=== PATIENT | female | born 1965 ===

== ENCOUNTER → 2018-07-17 | Outpatient (CLI) | payer SELFPAY ==
[~2018-07-17] MED LIST: ACYC800T PO; ALAVERT PO; DOXY100C2; HYDR-700 PO; METH4TAB; PHEN35TA
--- NOTE | 2018-07-17 10:21 | Diagnostic Imaging Report ---
CLINICAL INDICATION: Patient with loss of smell x6 months. No history of trauma. No past surgical history or history of cancer. EXAM: Axial CT scan of the brain performed without IV contrast. COMPARISON: None. FINDINGS: There is no evidence of acute cerebral infarct, intracranial hemorrhage, or gross mass effect. The brain parenchymal volume appears appropriate for patient's age. There is normal gallardo-white matter distinction. There is no significant midline shift or herniation. There is no evidence of hydrocephalus. The basal cisterns are unremarkable. The skull, extracranial soft tissue, and orbits are unremarkable. The paranasal sinuses are unremarkable. Temporal bones show no significant abnormality. IMPRESSION: Unremarkable CT scan of the brain. Dictated by: Dictated on workstation # [id number]
== END ==
LOC: RAD 09:27
PROVIDERS: ATTEND Nurse Practitioner Family
DX: R43.9 Unspecified disturbances of smell and taste (principal)
CPT/HCPCS: 70450